=== PATIENT | male | born 1960 | race Caucasian/White ===

== ENCOUNTER 2016-09-05 23:20 | Emergency (ER) | payer OTHER ==
[~2016-09-05] VITALS: Ht 195.6 cm; Wt 102.1 kg
--- NOTE | 2016-09-06 00:05 | PHYS DOC ---
Past Medical History Past Medical History: No Pertinent History Past Surgical History: Tonsillectomy Additional Past Surgical Histo: Hernia Alcohol Use: Rarely Drug Use: None Adult General Chief Complaint Chief Complaint: FLANK PAIN HPI HPI Patient is a 56 year old male who presents with complaint of left-sided flank pain. Patient states that his symptoms have been present for the past 2 days and have progressively gotten worse. Patient states that he has been having constant dull pain to his left flank but states that he gets intermittent sharp cramping pain towards his left upper quadrant that sometimes radiates towards his left groin. Patient denies any associated fevers, hematuria, or dysuria. Patient has been taking Aleve to help with his symptoms with no significant relief. Patient has had nausea but no vomiting. Patient denies previous history of similar symptoms. Patient does have family history of kidney stones. Review of Systems Review of Systems Constitutional: Denies fever or chills [] Eyes: Denies change in visual acuity, redness, or eye pain [] HENT: Denies nasal congestion or sore throat [] Respiratory: Denies cough or shortness of breath [] Cardiovascular: Denies chest pain or edema [] GI: Nausea, left upper quadrant pain, denies vomiting, bloody stools or diarrhea [] : Left flank pain, Denies dysuria or hematuria [] Musculoskeletal: Denies back pain or joint pain [] Integument: Denies rash or skin lesions [] Neurologic: Denies headache, focal weakness or sensory changes [] Current Medications Current Medications Current Medications Medications (Trade) Dose Ordered Sig/Bakari Start Time Stop Time Status Last Admin Dose Admin Ketorolac Tromethamine (Toradol) 30 mg 1X ONCE 09/06/16 01:15 09/06/16 01:16 Sodium Chloride (Iv Sodium Chloride 0.9% 1000ml Bag) 1,000 ml @ 1,000 mls/hr Q1H 09/06/16 00:30 09/06/16 01:29 09/06/16 00:25 1,000 MLS/HR Allergies Allergies Allergies Coded Allergies Type Severity Reaction Last Updated Verified hydrocodone Allergy Intermediate 09/05/16 Yes Physical Exam Physical Exam Constitutional: Alert, afebrile, appears in moderate discomfort. [] HENT: Normocephalic, atraumatic, bilateral external ears normal, oropharynx moist, no oral exudates, nose normal. [] Eyes: PERRLA, EOMI, conjunctiva normal, no discharge. [] Neck: Normal range of motion, no tenderness, supple, no stridor. [] Cardiovascular:Heart rate regular rhythm, no murmur [] Lungs & Thorax: Bilateral breath sounds clear to auscultation, left anterior and lateral intercostal tenderness to palpation causing reproducible pain [] Abdomen: Bowel sounds normal, soft, no tenderness, no masses, no pulsatile masses. [] Skin: Warm, dry, no erythema, no rash. [] Back: No tenderness, no CVA tenderness. [] Extremities: No tenderness, no cyanosis, no clubbing, ROM intact, no edema. [] Neurologic: Alert and oriented X 3, normal motor function, normal sensory function, no focal deficits noted. [] Current Patient Data Vital Signs Vital Signs Date Time Temp Pulse Resp B/P Pulse Ox O2 Delivery O2 Flow Rate FiO2 09/06/16 00:34 64 23 121/82 97 Room Air 09/05/16 23:25 98.3 98.3 Lab Values Laboratory Tests Test 09/06/16 00:01 White Blood Count 9.5x10^3/uL (4.0-11.0) Red Blood Count 4.71x10^6/uL (4.30-5.70) Hemoglobin 15.0g/dL (13.0-17.5) Hematocrit 45.0% (39.0-53.0) Mean Corpuscular Volume 95fL (79-100) Mean Corpuscular Hemoglobin 32pg (25-35) Mean Corpuscular Hemoglobin Concent 34g/dL (31-37) Red Cell Distribution Width 13.5% (11.5-14.5) Platelet Count 235x10^3/uL (140-400) Neutrophils (%) (Auto) 71% (31-73) Lymphocytes (%) (Auto) 20% (24-48) L Monocytes (%) (Auto) 7% (0-9) Eosinophils (%) (Auto) 1% (0-3) Basophils (%) (Auto) 1% (0-3) Neutrophils # (Auto) 6.8x10^3uL (1.8-7.7) Lymphocytes # (Auto) 1.9x10^3/uL (1.0-4.8) Monocytes # (Auto) 0.7x10^3/uL (0.0-1.1) Eosinophils # (Auto) 0.1x10^3/uL (0.0-0.7) Basophils # (Auto) 0.1x10^3/uL (0.0-0.2) Urine Collection Type Unknown Urine Color Yellow Urine Clarity Clear Urine pH 5.5 Urine Specific Seeley >=1.030 Urine Protein Negativemg/dL (NEG-TRACE) Urine Glucose (UA) 100mg/dL (NEG) Urine Ketones (Stick) Negativemg/dL (NEG) Urine Blood Negative (NEG) Urine Nitrite Negative (NEG) Urine Bilirubin Negative (NEG) Urine Urobilinogen Dipstick 1.0mg/dL (0.2 mg/dL) Urine Leukocyte Esterase Negative (NEG) Urine RBC Occ/HPF (0-2) Urine WBC 1-4/HPF (0-4) Urine Squamous Epithelial Cells Occ/LPF Urine Bacteria 0/HPF (0-FEW) Urine Mucus Mod/LPF Sodium Level 141mmol/L (136-145) Potassium Level 4.0mmol/L (3.5-5.1) Chloride Level 103mmol/L (98-107) Carbon Dioxide Level 26mmol/L (21-32) Anion Gap 12 (6-14) Blood Urea Nitrogen 16mg/dL (8-26) Creatinine 0.9mg/dL (0.7-1.3) Estimated GFR (Cockcroft-Gault) 86.7 BUN/Creatinine Ratio 18 (6-20) Glucose Level 106mg/dL (70-99) H Calcium Level 8.6mg/dL (8.5-10.1) Total Bilirubin 0.3mg/dL (0.2-1.0) Aspartate Amino Transferase (AST) 13U/L (15-37) L Alanine Aminotransferase (ALT) 22U/L (16-63) Alkaline Phosphatase 67U/L (46-116) Total Protein 7.7g/dL (6.4-8.2) Albumin 4.0g/dL (3.4-5.0) Albumin/Globulin Ratio 1.1 (1.0-1.7) Lipase 124U/L (73-393) Laboratory Tests 09/06/16 00:01 Laboratory Tests 09/06/16 00:01 EKG EKG Not performed [] Radiology/Procedures Radiology/Procedures [facility] [address] [place] [address] IMAGING REPORT Signed PATIENT: SERGEY NI ACCOUNT: [id number] : 1960 LOCATION: ER AGE: 56 SEX: M EXAM STATUS: REG ER ORD. PHYSICIAN: PATSY JAEGER MD REASON: left flank pain PROCEDURE: CT ABDOMEN PELVIS WO CONTRAST CT abdomen and pelvis without contrast Indication: Left flank pain. Axial imaging through the abdomen and pelvis was performed without contrast. Imaging through the lung bases demonstrates basilar interstitial changes, acuity indeterminate. The liver and gallbladder are unremarkable. The pancreas and spleen are unremarkable. No adrenal mass is detected. No renal calculi or hydronephrosis is detected. There is mild aneurysmal dilatation of the infrarenal abdominal aorta measuring 3.6 centimeters AP diameter. No perianeurysmal fluid collection is seen. The small and large bowel loops are normal caliber. There is no free fluid. The bladder is unremarkable. The prostate appears enlarged. Impression: - No evidence of urinary tract calculi or obstruction. - Infrarenal abdominal aortic aneurysm. Electronically signed by: Saji Wallis MD (Sep 06, 2016 00:32:44) DICTATED and SIGNED BY: SAJI WALLIS MD DATE: 09/06/1631 CC: PATSY JAEGER MD; NO PCP ~ [] Course & Med Decision Making Course & Med Decision Making Pertinent Labs and Imaging studies reviewed. (See chart for details) Patient's CT showed incidental finding of a 3.6 cm infrarenal aortic aneurysm. The patient's symptoms at this time appear consistent with intercostal muscle strain. Patient treated with IV Toradol with improvement in symptoms. I did speak with the patient regarding the finding of his aneurysm and need for close follow-up and monitoring as outpatient. The patient was prescribed Flexeril and advised to continue on Aleve twice a day for symptoms. Recommended follow-up with primary doctor in 1 week if symptoms are not improving and return to emergency department for any worsening symptoms. Patient voiced understanding and in agreement with treatment plan. Dragon Disclaimer Dragon Disclaimer This electronic medical record was generated, in whole or in part, using a voice recognition dictation system. Departure Departure Impression: Primary Impression: Intercostal muscle strain Additional Impression: Abdominal aortic aneurysm (AAA) 3.0 cm to 5.5 cm in diameter in male Disposition: 01 HOME, SELF-CARE Condition: IMPROVED Patient Instructions: Chest Wall Pain, Muscle Strain Additional Instructions: Follow-up in one week with your primary doctor if symptoms are not improving. You will need to establish regular follow-up as you were found to have an abdominal aortic aneurysm measuring 3.[address] scan. While this is not believed to be contributing to your current symptoms, he will need close follow-up in the event that this aneurysm gets bigger. If this happens, you'll need consultation with a vascular surgeon for possible repair. Return to the emergency department for any worsening symptoms. Scripts Cyclobenzaprine Hcl 10 Mg Tablet1 Tab PO TID PRN MUSCLE SPASMS #30 TAB Prov:PATSY JAEGER MD 09/06/16 Problem Qualifiers Primary Impression: Intercostal muscle strain Encounter type: initial encounter Qualified Code: S29.011A - Strain of muscle and tendon of front wall of thorax, initial encounter PATSY JAEGER MD Sep 06, 2016 00:05
[2016-09-06 00:20] LABS: BASO # 0.1 x10^3/uL (0.0-0.2); BASO % 1 % (0-3); EOS % 1 % (0-3); LYMPH # 1.9 x10^3/uL (1.0-4.8); LYMPH % 20 % (24-48); MEAN CORPUSCULAR HEMOGLOBIN 32 pg (25-35); MEAN CORPUSCULAR HGB CONC 34 g/dL (31-37); MEAN CORPUSCULAR VOLUME 95 fL (79-100); MONO % 7 % (0-9); NEUT % 71 % (31-73); PLATELET COUNT 235 x10^3/uL (140-400); RED BLOOD COUNT 4.71 x10^6/uL (4.30-5.70); RED CELL DISTRIBUTION WIDTH 13.5 % (11.5-14.5); WHITE BLOOD COUNT 9.5 x10^3/uL (4.0-11.0)
[2016-09-06 00:23] LABS: BILIRUBIN,URINE NEGATIVE (NEG); GLUCOSE,URINE 100 mg/dL (NEG); NITRITE,URINE NEGATIVE (NEG); PH,URINE 5.5; PROTEIN,URINE NEGATIVE (NEG-TRACE)
[2016-09-06 00:29] LABS: BACTERIA,URINE 0 /HPF (0-FEW); RBC,URINE OCC /HPF (0-2); SQUAMOUS EPITHELIAL CELL,UR OCC /LPF
[2016-09-06] MEDS ORDERED: IV NORMAL SALINE 1000ML BAG 1,000 ML IV SCH (00:30)
[2016-09-06 00:32] LABS: CALCIUM 8.6 mg/dL (8.5-10.1); CREATININE 0.9 mg/dL (0.7-1.3); GFR 86.7
--- NOTE | 2016-09-06 00:34 | RAD ---
CT abdomen and pelvis without contrast Indication: Left flank pain. Axial imaging through the abdomen and pelvis was performed without contrast. Imaging through the lung bases demonstrates basilar interstitial changes, acuity indeterminate. The liver and gallbladder are unremarkable. The pancreas and spleen are unremarkable. No adrenal mass is detected. No renal calculi or hydronephrosis is detected. There is mild aneurysmal dilatation of the infrarenal abdominal aorta measuring 3.6 centimeters AP diameter. No perianeurysmal fluid collection is seen. The small and large bowel loops are normal caliber. There is no free fluid. The bladder is unremarkable. The prostate appears enlarged. Impression: - No evidence of urinary tract calculi or obstruction. - Infrarenal abdominal aortic aneurysm. Electronically signed by: Saji Wallis MD (Sep 06, 2016 00:32:44)
[2016-09-06 00:37] LABS: ALBUMIN/GLOBULIN RATIO 1.1 (1.0-1.7); TOTAL BILIRUBIN 0.3 mg/dL (0.2-1.0); TOTAL PROTEIN 7.7 g/dL (6.4-8.2)
[2016-09-06] MEDS ORDERED: CYCL10TA2 PO (01:03)
[2016-09-06] MEDS ORDERED: KETOROLAC TROMETHAMINE 30 MG/ML INJ. IV ONE (01:15)
[2016-09-06 01:32] VITALS: BP 140/81
== END 2016-09-06 01:31 | disposition home or self-care (01) ==
LOC: ER 23:20
DX: I71.4 Abdominal aortic aneurysm, without rupture (principal); R11.0 Nausea; Z88.5 Allergy status to narcotic agent
CPT/HCPCS: 36415; 74176; 80053; 81001; 83690; 85027; 96361; 96374; 99285; J1885; J7030